=== PATIENT | male | born 1955 | race Native Hawaiian/Other Pacific Islander ===

== ENCOUNTER 2017-05-09 13:56 | Inpatient (IN) | payer OTHER ==
[2017-05-09 15:32] LABS: BASO # 0.1 K/uL (0.0-0.2); EOS # 0.1 K/uL (0.0-0.7); EOS % 1.9 % (0.0-4.0); HEMOGLOBIN 16.5 g/dL (12.0-18.0); LYMPH # 1.5 K/uL (1.0-4.3); LYMPH % 19.4 % (20.0-40.0); MEAN CELL VOLUME 85.7 fL (80.0-94.0); MEAN CORPUSCULAR HEMOGLOBIN 30.1 pg (27.0-31.0); MEAN CORPUSCULAR HGB CONC 35.1 g/dL (33.0-37.0); MEAN PLATELET VOLUME 7.8 fL (7.2-11.7); MONO # 0.7 K/uL (0.0-0.8); MONO % 9.4 % (0.0-10.0); NEUT # 5.3 K/uL (1.8-7.0); NEUT % 68.3 % (50.0-75.0); NRBC % 0.1 % (0.0-2.0); RBC 5.48 Mil/uL (4.40-5.90); RED CELL DISTRIBUTION WIDTH 14.9 % (11.5-14.5); WHITE BLOOD COUNT 7.7 K/uL (4.8-10.8)
[2017-05-09 15:41] LABS: URINE BILIRUBIN NEGATIVE (NEGATIVE); URINE BLOOD NEGATIVE (NEGATIVE); URINE CLARITY Clear (Clear); URINE COLOR Colorless (YELLOW); URINE GLUCOSE (UA) 3+ mg/dL (Normal); URINE LEUKOCYTE ESTERASE NEG Leu/uL (Negative); URINE PROTEIN NEGATIVE (NEGATIVE); URINE UROBILINOGEN NORMAL mg/dL (0.2-1.0)
[2017-05-09 15:42] LABS: INR 0.9; PROTHROMBIN TIME 10.5 SECONDS (9.7-12.2)
--- NOTE | 2017-05-09 16:23 | CT ---
PROCEDURE: CT Chest without contrast HISTORY: eval for TB- @ outside Radiology (no report avai COMPARISON: None. TECHNIQUE: Contiguous axial images were obtained through the chest without intravenous contrast enhancement. Sagittal and coronal reconstructions were performed. Radiation dose (DLP): 338.78 mGy-cm. This CT exam was performed using one or more of the following dose reduction techniques: Automated exposure control, adjustment of the mA and/or kV according to patient size, and/or use of iterative reconstruction technique. FINDINGS: LUNGS: Multifocal patchy consolidation in the apical posterior segment of the left upper lobe. Fibrosis with upward retraction of left hilum. Patchy consolidation also seen in superior segment left lower lobe, anterior segment right upper lobe. Multifocal small airways disease manifested as tree in bud appearance in the right lower lobe, most prominently in the superior segment as well as throughout the basilar segments of the left lower lobe, in the lingular segment of left upper lobe. No evidence of cavitation. 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 Antro basal left lower lobe nodule, 1.3 cm. Lingular nodule, 1.4 cm, abutting the major fissure. Nonspecific. Followup advised. MEDIASTINUM: Unremarkable thoracic aorta. No aneurysm. Normal sized heart. Main pulmonary artery unremarkable. No vascular congestion. No lymphadenopathy. PLEURA: No pleural fluid. No pneumothorax. BONES: No fracture. No destructive lesion. UPPER ABDOMEN: Grossly unremarkable. OTHER FINDINGS: None. IMPRESSION: Findings suspicious for reactivation tuberculosis with areas of yakelin consolidation as well as multifocal small airways disease as well as fibrotic change in the left apex with upward retraction of the left hilum. No evidence of cavitation. Several left basilar nodules are noted, both in the lower lobe and lingula. Followup advised.
--- NOTE | 2017-05-09 16:32 | C.PDOC ---
History Of Present Illness 61 year old male is sent to the ED by Dr. Kamari Moscoso for evaluation of cough , atypical CXR and CT scan done as an outpatient (not in our facilities) and suspicious reactivation of TB. Patient presents to the ED with no paperwork to the ED. Patient denies recent weight loss, hemoptysis, prior Hx of TB, recent travel, recent contact with TB. Time Seen by Provider: 05/09/17 14:27 Chief Complaint (Nursing): Medical Clearance History Per: Patient History/Exam Limitations: no limitations Onset/Duration Of Symptoms: Days Current Symptoms Are (Timing): Still Present Reports Recently: Treated By A Physician (Dr. Kamari Moscoso) Recent travel outside of the [place]: No Additional History Per: Patient Past Medical History Reviewed: Historical Data, Nursing Documentation, Vital Signs Vital Signs: Last Vital Signs Temp 98.1 F 05/09/17 23:33 Pulse 65 05/09/17 23:33 Resp 20 05/09/17 23:33 BP 129/79 05/09/17 23:33 Pulse Ox 98 05/09/17 23:33 - Medical History PMH: HTN Surgical History: No Surg Hx Family History: States: Unknown Family Hx - Social History Hx Alcohol Use: Yes Hx Substance Use: No - Immunization History Hx Tetanus Toxoid Vaccination: No Hx Influenza Vaccination: Yes Hx Pneumococcal Vaccination: No Review Of Systems Constitutional: Negative for: Fever, Chills Respiratory: Positive for: Cough. Negative for: Shortness of Breath, Hemoptysis Gastrointestinal: Negative for: Vomiting, Abdominal Pain Skin: Negative for: Rash Neurological: Negative for: Weakness Physical Exam - Physical Exam Appears: Non-toxic, No Acute Distress Skin: Normal Color, Warm, Dry Head: Atraumatic, Normacephalic Eye(s): bilateral: Normal Inspection Nose: No Discharge Oral Mucosa: Moist Neck: Normal ROM, Supple Chest: Symmetrical Cardiovascular: Rhythm Regular, No Murmur Respiratory: Normal Breath Sounds, No Rales, No Rhonchi, No Wheezing Gastrointestinal/Abdominal: Soft, No Tenderness, No Guarding, No Rebound Extremity: Normal ROM, No Tenderness, No Swelling Neurological/Psych: Oriented x3 Gait: Steady ED Course And Treatment - Laboratory Results Result Diagrams: 05/09/17 15:28 05/09/17 15:28 O2 Sat by Pulse Oximetry: 97 (On RA) Pulse Ox Interpretation: Normal - CT Scan/US CT chest Other Rad Studies (CT/US): Read By Radiologist, Radiology Report Reviewed CT/US Interpretation: IMPRESSION: Findings suspicious for reactivation tuberculosis with areas of yakelin consolidation as well as multifocal small airways disease as well as fibrotic change in the left apex with upward retraction of the left hilum. No evidence of cavitation. Several left basilar nodules are noted, both in the lower lobe and lingula. Followup advised. Medical Decision Making Medical Decision Making: Impression: TB rule out Plan: * EKG * CT chest * CXR * Labs * Quatiferon * Blood culture * Influenza A B * UA 14:30 - spoke with Dr. Moscoso who recommended Dr. Diaz 15:00 - Spoke with Dr. Diaz who will be on consult. Disposition Doctor Will See Patient In The: Hospital Counseled Patient/Family Regarding: Studies Performed, Diagnosis - Disposition Disposition: HOSPITALIZED Disposition Time: 16:30 Condition: GOOD - Clinical Impression Clinical Impression: Reactivation tuberculosis - Scribe Statement The provider has reviewed the documentation as recorded by the Danielibaudi Mckee All medical record entries made by the Danielibaudi were at my direction and personally dictated by me. I have reviewed the chart and agree that the record accurately reflects my personal performance of the history, physical exam, medical decision making, and the department course for this patient. I have also personally directed, reviewed, and agree with the discharge instructions and disposition.
[2017-05-09 16:50] LABS: ALB/GLOB RATIO 1.3 (1.0-2.1); ALBUMIN 4.6 g/dL (3.5-5.0); ALT/SGPT 62 U/L (21-72); AST/SGOT 48 U/L (17-59); BLOOD UREA NITROGEN 18 mg/dL (9-20); CALCIUM 9.6 mg/dl (8.6-10.4); GFR AFRICAN-AMERICAN > 60; GFR NON-AFRICAN AMERICAN > 60
--- NOTE | 2017-05-09 17:58 | RAD ---
PROCEDURE: CHEST RADIOGRAPH, 1 VIEW HISTORY: SOB COMPARISON: May 09, 2017. CT thorax FINDINGS: LUNGS: Patchy infiltrates left upper lobe, left lung predilection better visualized on recent CT scan. PLEURA: No pneumothorax or pleural fluid seen. CARDIOVASCULAR: No radiographic findings to suggest acute or significant cardiovascular disease. OSSEOUS STRUCTURES: No significant abnormalities. VISUALIZED UPPER ABDOMEN: Normal. OTHER FINDINGS: None. IMPRESSION: Multifocal infiltrates particularly affecting the left lung.
[2017-05-09] MEDS: (Novolog) Insulin Aspart, Recombinant 100 u/ml 10 ml vial SC SCH (21:16)
[2017-05-10] MEDS: (Novolog) Insulin Aspart, Recombinant 100 u/ml 10 ml vial SC SCH ×4 (08:37→21:33)
--- NOTE | 2017-05-10 09:35 | CP.PCM.HP ---
History of Present Illness - History of Present Illness History of Present Illness: CC: ? PTB 61 y/o male was seen for pre operative evaluation for neck surgery. Patient CXR was abnormal and had a (+) PPD - 14 mm. 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 Pt advise to go to ER Present on Admission - Present on Admission Any Indicators Present on Admission: Yes History of DVT/PE: No History of Uncontrolled Diabetes: No Urinary Catheter: No Decubitus Ulcer Present: No Review of Systems - Review of Systems Systems not reviewed;Unavailable: Acuity of Condition - Constitutional Constitutional: absent: Anorexia, Frequent Falls, Headache, Snoring - EENT Eyes: absent: Change in Vision, Floaters, Irritation, Itchy Eyes Nose/Mouth/Throat: Neck Pain. absent: Nasal Congestion, Bleeding Gums, Halitosis, Odynophagia - Cardiovascular Cardiovascular: absent: Chest Pain, Diaphoresis, Irregular Heart Rhythm, Lightheadedness, Orthopnea - Respiratory Respiratory: Cough. absent: Dyspnea, Hemoptysis, Dyspnea on Exertion, Chest Congestion, Excessive Mucous Production, Change in Mucous Color - Gastrointestinal Gastrointestinal: absent: Abdominal Pain, Change in Stool Character, Diarrhea, Fecal Incontinence, Heartburn, Nausea - Genitourinary Genitourinary: absent: Change in Urinary Stream, Hematuria, Nocturia, Urinary Incontinence - Musculoskeletal Musculoskeletal: absent: Abnormal Gait, Muscle Weakness, Myalgias - Integumentary Integumentary: absent: Bleeding Lesions, New Lesions, Rash, Skin Ulcer, Wounds - Neurological Neurological: absent: Disequilibrium, Dizziness, Numbness, Radicular Pain, Syncope, Tingling Past Patient History - Infectious Disease Hx of Infectious Diseases: None - Past Medical History & Family History Past Medical History?: Yes - Past Social History Smoking Status: Former Smoker - CARDIAC Hx Hypertension: Yes - PULMONARY Hx Respiratory Disorders: No - NEUROLOGICAL Hx Neurological Disorder: No - HEENT Hx HEENT Problems: No - RENAL Hx Chronic Kidney Disease: No - ENDOCRINE/METABOLIC Hx Endocrine Disorders: Yes Hx Diabetes Mellitus Type 2: Yes - HEMATOLOGICAL/ONCOLOGICAL Hx Blood Disorders: No - INTEGUMENTARY Hx Dermatological Problems: No - MUSCULOSKELETAL/RHEUMATOLOGICAL Hx Musculoskeletal Disorders: No Hx Falls: No - GASTROINTESTINAL Hx Gastrointestinal Disorders: No - GENITOURINARY/GYNECOLOGICAL Hx Genitourinary Disorders: No - PSYCHIATRIC Hx Substance Use: No - SURGICAL HISTORY Hx Surgeries: No - ANESTHESIA Hx Anesthesia: No Hx Anesthesia Reactions: No Hx Malignant Hyperthermia: No Has any member of the family had a problem w/ anesthesia?: No Meds Allergies/Adverse Reactions: Allergies Allergy/AdvReac Type Severity Reaction Status Date / Time No Known Allergies Allergy Verified 05/09/17 14:05 Physical Exam - Constitutional Appears: Well - Eye Exam Eye Exam: Normal appearance - ENT Exam ENT Exam: Mucous Membranes Moist - Neck Exam Neck exam: Positive for: Full Rom. Negative for: Lymphadenopathy, Normal Inspection, Thyromegaly - Respiratory Exam Respiratory Exam: Clear to Auscultation Bilateral. absent: Rales, Rhonchi, Wheezes - Cardiovascular Exam Cardiovascular Exam: +S1, +S2, Systolic Murmur. absent: Gallop, REGULAR RHYTHM , JVD - GI/Abdominal Exam GI & Abdominal Exam: Soft. absent: Mass, Tenderness - Extremities Exam Extremities exam: Positive for: full ROM. Negative for: calf tenderness, joint swelling, pedal edema Results - Vital Signs Recent Vital Signs: Last Vital Signs Temp 97.9 F 05/10/17 07:10 Pulse 64 05/10/17 07:10 Resp 20 05/10/17 07:10 BP 120/73 05/10/17 07:10 Pulse Ox 97 05/10/17 07:10 - Labs Result Diagrams: 05/09/17 15:28 05/09/17 15:28 Labs: Laboratory Results - last 24 hr 05/09/17 05/09/17 05/09/17 14:56 15:28 15:28 WBC 7.7 RBC 5.48 Hgb 16.5 Hct 47.0 MCV 85.7 MCH 30.1 MCHC 35.1 RDW 14.9 H Plt Count 277 MPV 7.8 Neut % (Auto) 68.3 Lymph % (Auto) 19.4 L [place] % (Auto) 9.4 Eos % (Auto) 1.9 Baso % (Auto) 1.0 Neut # (Auto) 5.3 Lymph # (Auto) 1.5 [place] # (Auto) 0.7 Eos # (Auto) 0.1 Baso # (Auto) 0.1 PT INR APTT Sodium 138 Potassium 4.0 Chloride 91 L Carbon Dioxide 24 Anion Gap 26 H BUN 18 Creatinine 1.0 Est GFR ( Amer) > 60 Est GFR (Non-Af Amer) > 60 POC Glucose (mg/dL) Random Glucose 327 H Calcium 9.6 Total Bilirubin 0.5 AST 48 ALT 62 Alkaline Phosphatase 76 Troponin I < 0.0120 Total Protein 8.0 Albumin 4.6 Globulin 3.4 Albumin/Globulin Ratio 1.3 Urine Color Urine Clarity Urine pH Ur Specific [place] Urine Protein Urine Glucose (UA) Urine Ketones Urine Blood Urine Nitrate Urine Bilirubin Urine Urobilinogen Ur Leukocyte Esterase Influenza Typ A,B (EIA) Negative for flu a/b 05/09/17 05/09/17 05/09/17 15:28 15:35 18:09 WBC RBC Hgb Hct MCV MCH MCHC RDW Plt Count MPV Neut % (Auto) Lymph % (Auto) [place] % (Auto) Eos % (Auto) Baso % (Auto) Neut # (Auto) Lymph # (Auto) [place] # (Auto) Eos # (Auto) Baso # (Auto) PT 10.5 INR 0.9 APTT 32 Sodium Potassium Chloride Carbon Dioxide Anion Gap BUN Creatinine Est GFR ( Amer) Est GFR (Non-Af Amer) POC Glucose (mg/dL) 273 H Random Glucose Calcium Total Bilirubin AST ALT Alkaline Phosphatase Troponin I Total Protein Albumin Globulin Albumin/Globulin Ratio Urine Color Colorless Urine Clarity Clear Urine pH 5.0 Ur Specific [place] 1.018 Urine Protein Negative Urine Glucose (UA) 3+ H Urine Ketones Negative Urine Blood Negative Urine Nitrate Negative Urine Bilirubin Negative Urine Urobilinogen Normal Ur Leukocyte Esterase Neg Influenza Typ A,B (EIA) 05/09/17 05/10/17 21:09 06:15 WBC RBC Hgb Hct MCV MCH MCHC RDW Plt Count MPV Neut % (Auto) Lymph % (Auto) [place] % (Auto) Eos % (Auto) Baso % (Auto) Neut # (Auto) Lymph # (Auto) [place] # (Auto) Eos # (Auto) Baso # (Auto) PT INR APTT Sodium Potassium Chloride Carbon Dioxide Anion Gap BUN Creatinine Est GFR ( Amer) Est GFR (Non-Af Amer) POC Glucose (mg/dL) 207 H 225 H Random Glucose Calcium Total Bilirubin AST ALT Alkaline Phosphatase Troponin I Total Protein Albumin Globulin Albumin/Globulin Ratio Urine Color Urine Clarity Urine pH Ur Specific [place] Urine Protein Urine Glucose (UA) Urine Ketones Urine Blood Urine Nitrate Urine Bilirubin Urine Urobilinogen Ur Leukocyte Esterase Influenza Typ A,B (EIA) - EKG Data EKG Interpreted by: Myself (isolated PAC) EKG shows normal: Sinus rhythm Rate: Normal - EKG Data When Compared to Previous EKG: No Significant Change Assessment & Plan - Assessment and Plan (Free Text) Assessment: Atyp chest pain; NIDDM, Hypothyroidism Cont meds at home For ID but will start RI for now
[2017-05-10] MEDS: Bisoprolol-HCTZ 5-6.25 mg Tab PO SCH (10:21)
[2017-05-10] MEDS: Dapagliflozin Propanediol [Farxiga] 5 MG PO SCH (10:21)
[2017-05-10] MEDS: (Lantus) Insulin Glargine, Recombinant SC SCH (10:57)
--- NOTE | 2017-05-10 11:11 | CP.PCM.CON ---
History of Present Illness - History of Present Illness History of Present Illness: 61 year old male is sent to the ED by Dr. Kamari Moscoso for evaluation of cough , atypical CXR and CT scan done as an outpatient (not in our facilities) and suspicious reactivation of TB. Patient presents to the ED with no paperwork to the ED. Patient denies recent weight loss, hemoptysis, prior Hx of TB, recent travel, recent contact with TB. 61 y/o male was seen for pre operative evaluation for neck surgery. Patient CXR was abnormal and had a (+) PPD - 14 mm. 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 Pt advise to go to ER Present on Admission - Present on Admission Any Indicators Present on Admission: Yes History of DVT/PE: No History of Uncontrolled Diabetes: No Urinary Catheter: No Decubitus Ulcer Present: No Review of Systems - Review of Systems Systems not reviewed;Unavailable: Acuity of Condition - Constitutional Constitutional: absent: Anorexia, Frequent Falls, Headache, Snoring - EENT Eyes: absent: Change in Vision, Floaters, Irritation, Itchy Eyes Nose/Mouth/Throat: Neck Pain. absent: Nasal Congestion, Bleeding Gums, Halitosis, Odynophagia - Cardiovascular Cardiovascular: absent: Chest Pain, Diaphoresis, Irregular Heart Rhythm, Lightheadedness, Orthopnea - Respiratory Respiratory: Cough. absent: Dyspnea, Hemoptysis, Dyspnea on Exertion, Chest Congestion, Excessive Mucous Production, Change in Mucous Color - Gastrointestinal Gastrointestinal: absent: Abdominal Pain, Change in Stool Character, Diarrhea, Fecal Incontinence, Heartburn, Nausea - Genitourinary Genitourinary: absent: Change in Urinary Stream, Hematuria, Nocturia, Urinary Incontinence - Musculoskeletal Musculoskeletal: absent: Abnormal Gait, Muscle Weakness, Myalgias - Integumentary Integumentary: absent: Bleeding Lesions, New Lesions, Rash, Skin Ulcer, Wounds - Neurological Neurological: absent: Disequilibrium, Dizziness, Numbness, Radicular Pain, Syncope, Tingling Past Patient History - Infectious Disease Hx of Infectious Diseases: None - Past Medical History & Family History Past Medical History?: Yes - Past Social History Smoking Status: Former Smoker - CARDIAC Hx Hypertension: Yes - PULMONARY Hx Respiratory Disorders: No - NEUROLOGICAL Hx Neurological Disorder: No - HEENT Hx HEENT Problems: No - RENAL Hx Chronic Kidney Disease: No - ENDOCRINE/METABOLIC Hx Endocrine Disorders: Yes Hx Diabetes Mellitus Type 2: Yes - HEMATOLOGICAL/ONCOLOGICAL Hx Blood Disorders: No - INTEGUMENTARY Hx Dermatological Problems: No - MUSCULOSKELETAL/RHEUMATOLOGICAL Hx Musculoskeletal Disorders: No Hx Falls: No - GASTROINTESTINAL Hx Gastrointestinal Disorders: No - GENITOURINARY/GYNECOLOGICAL Hx Genitourinary Disorders: No - PSYCHIATRIC Hx Substance Use: No - SURGICAL HISTORY Hx Surgeries: No - ANESTHESIA Hx Anesthesia: No Hx Anesthesia Reactions: No Hx Malignant Hyperthermia: No Has any member of the family had a problem w/ anesthesia?: No Meds Allergies/Adverse Reactions: Allergies Allergy/AdvReac Type Severity Reaction Status Date / Time No Known Allergies Allergy Verified 05/09/17 14:05 - Medications Medications: Current Medications Bisoprolol Fumarate/HCTZ (Ziac 5-6.25 Mg) 1 tab PO DAILY [facility] Last Admin: 05/10/17 10:21 Dose: 1 tab Heparin Sodium (Porcine) (Heparin) 5,000 units SC Q12 [facility] Home Med (Patient's Own Medication) 1 tab PO DAILY [facility] Last Admin: 05/10/17 10:21 Dose: 1 tab Insulin Aspart (Novolog) 0 unit SC ACHS [facility] PRN Reason: Protocol Last Admin: 05/10/17 08:37 Dose: 3 unit Insulin Glargine (Lantus) 12 unit SC DAILY [facility] Isoniazid (Niazid) 300 mg PO DAILY [facility] PRN Reason: Protocol Last Admin: 05/10/17 10:21 Dose: 300 mg Metformin HCl (Glucophage) 850 mg PO DAILY [facility] Last Admin: 05/10/17 10:22 Dose: 850 mg Rifampin (Rifampin) 450 mg PO DAILY [facility] PRN Reason: Protocol Stop: 05/23/17 23:59 Last Admin: 05/10/17 10:21 Dose: 450 mg Rosuvastatin Calcium (Crestor) 5 mg PO HS [facility] Last Admin: 05/09/17 21:06 Dose: 5 mg Physical Exam - Constitutional Appears: Chronically Ill - Head Exam Head Exam: ATRAUMATIC, NORMOCEPHALIC - Eye Exam Eye Exam: PERRL. absent: Scleral icterus - ENT Exam ENT Exam: Mucous Membranes Dry - Neck Exam Neck exam: Negative for: Lymphadenopathy - Respiratory Exam Respiratory Exam: Decreased Breath Sounds - Cardiovascular Exam Cardiovascular Exam: REGULAR RHYTHM - GI/Abdominal Exam GI & Abdominal Exam: Diminished Bowel Sounds, Soft. absent: Tenderness - Rectal Exam Rectal Exam: Deferred - Exam Exam: NORMAL INSPECTION - Extremities Exam Extremities exam: Negative for: pedal edema - Back Exam Back exam: absent: CVA tenderness (L), CVA tenderness (R) - Neurological Exam Neurological exam: Alert, CN II-XII Intact, Oriented x3, Reflexes Normal - Psychiatric Exam Psychiatric exam: Normal Mood - Skin Skin Exam: Dry Results - Vital Signs Recent Vital Signs: Last Vital Signs Temp 97.9 F 05/10/17 07:10 Pulse 64 05/10/17 07:10 Resp 20 05/10/17 07:10 BP 120/73 05/10/17 07:10 Pulse Ox 97 05/10/17 07:10 - Labs Result Diagrams: 05/09/17 15:28 05/09/17 15:28 Labs: Laboratory Results - last 24 hr 05/09/17 05/09/17 05/09/17 14:56 15:28 15:28 WBC 7.7 RBC 5.48 Hgb 16.5 Hct 47.0 MCV 85.7 MCH 30.1 MCHC 35.1 RDW 14.9 H Plt Count 277 MPV 7.8 Neut % (Auto) 68.3 Lymph % (Auto) 19.4 L [place] % (Auto) 9.4 Eos % (Auto) 1.9 Baso % (Auto) 1.0 Neut # (Auto) 5.3 Lymph # (Auto) 1.5 [place] # (Auto) 0.7 Eos # (Auto) 0.1 Baso # (Auto) 0.1 PT INR APTT Sodium 138 Potassium 4.0 Chloride 91 L Carbon Dioxide 24 Anion Gap 26 H BUN 18 Creatinine 1.0 Est GFR ( Amer) > 60 Est GFR (Non-Af Amer) > 60 POC Glucose (mg/dL) Random Glucose 327 H Calcium 9.6 Total Bilirubin 0.5 AST 48 ALT 62 Alkaline Phosphatase 76 Troponin I < 0.0120 Total Protein 8.0 Albumin 4.6 Globulin 3.4 Albumin/Globulin Ratio 1.3 Urine Color Urine Clarity Urine pH Ur Specific [place] Urine Protein Urine Glucose (UA) Urine Ketones Urine Blood Urine Nitrate Urine Bilirubin Urine Urobilinogen Ur Leukocyte Esterase Influenza Typ A,B (EIA) Negative for flu a/b 05/09/17 05/09/17 05/09/17 15:28 15:35 18:09 WBC RBC Hgb Hct MCV MCH MCHC RDW Plt Count MPV Neut % (Auto) Lymph % (Auto) [place] % (Auto) Eos % (Auto) Baso % (Auto) Neut # (Auto) Lymph # (Auto) [place] # (Auto) Eos # (Auto) Baso # (Auto) PT 10.5 INR 0.9 APTT 32 Sodium Potassium Chloride Carbon Dioxide Anion Gap BUN Creatinine Est GFR ( Amer) Est GFR (Non-Af Amer) POC Glucose (mg/dL) 273 H Random Glucose Calcium Total Bilirubin AST ALT Alkaline Phosphatase Troponin I Total Protein Albumin Globulin Albumin/Globulin Ratio Urine Color Colorless Urine Clarity Clear Urine pH 5.0 Ur Specific [place] 1.018 Urine Protein Negative Urine Glucose (UA) 3+ H Urine Ketones Negative Urine Blood Negative Urine Nitrate Negative Urine Bilirubin Negative Urine Urobilinogen Normal Ur Leukocyte Esterase Neg Influenza Typ A,B (EIA) 05/09/17 05/10/17 21:09 06:15 WBC RBC Hgb Hct MCV MCH MCHC RDW Plt Count MPV Neut % (Auto) Lymph % (Auto) [place] % (Auto) Eos % (Auto) Baso % (Auto) Neut # (Auto) Lymph # (Auto) [place] # (Auto) Eos # (Auto) Baso # (Auto) PT INR APTT Sodium Potassium Chloride Carbon Dioxide Anion Gap BUN Creatinine Est GFR ( Amer) Est GFR (Non-Af Amer) POC Glucose (mg/dL) 207 H 225 H Random Glucose Calcium Total Bilirubin AST ALT Alkaline Phosphatase Troponin I Total Protein Albumin Globulin Albumin/Globulin Ratio Urine Color Urine Clarity Urine pH Ur Specific [place] Urine Protein Urine Glucose (UA) Urine Ketones Urine Blood Urine Nitrate Urine Bilirubin Urine Urobilinogen Ur Leukocyte Esterase Influenza Typ A,B (EIA) Assessment & Plan (1) Reactivation tuberculosis Status: Acute - Assessment and Plan (Free Text) Assessment: await smears
--- NOTE | 2017-05-10 11:13 | CARD ---
APPROVED REPORT EKG Measurement Heart [id number] <Conclusion> Sinus rhythm with premature atrial complexes Otherwise normal ECG
--- NOTE | 2017-05-11 08:16 | CP.PCM.PN ---
Subjective - Date & Time of Evaluation Date of Evaluation: 05/11/17 Time of Evaluation: 08:15 - Subjective Subjective: Patient no comp;heidy; no CP, no SOB, (+) mostly dry cough, no diarrhea request to go home Objective - Vital Signs/Intake and Output Vital Signs (last 24 hours): Temp Pulse Resp BP Pulse Ox 97.7 F 64 20 111/75 95 05/11/17 07:42 05/11/17 07:42 05/11/17 07:42 05/11/17 07:42 05/11/17 07:42 - Medications Medications: Current Medications Bisoprolol Fumarate/HCTZ (Ziac 5-6.25 Mg) 1 tab PO DAILY [facility] Last Admin: 05/10/17 10:21 Dose: 1 tab Ethambutol HCl (Myambutol) 400 mg PO TID [facility] PRN Reason: Protocol Last Admin: 05/10/17 17:36 Dose: 400 mg Heparin Sodium (Porcine) (Heparin) 5,000 units SC Q12 [facility] Last Admin: 05/10/17 21:29 Dose: 5,000 units Home Med (Patient's Own Medication) 1 tab PO DAILY [facility] Last Admin: 05/10/17 10:21 Dose: 1 tab Insulin Aspart (Novolog) 0 unit SC ACHS [facility] PRN Reason: Protocol Last Admin: 05/10/17 21:33 Dose: Not Given Insulin Glargine (Lantus) 12 unit SC DAILY [facility] Last Admin: 05/10/17 10:57 Dose: 12 unit Isoniazid (Niazid) 300 mg PO DAILY [facility] PRN Reason: Protocol Last Admin: 05/10/17 10:21 Dose: 300 mg Metformin HCl (Glucophage) 850 mg PO DAILY [facility] Last Admin: 05/10/17 10:22 Dose: 850 mg Rifampin (Rifampin) 450 mg PO DAILY [facility] PRN Reason: Protocol Stop: 05/23/17 23:59 Last Admin: 05/10/17 10:21 Dose: 450 mg Rosuvastatin Calcium (Crestor) 5 mg PO HS [facility] Last Admin: 05/10/17 21:29 Dose: 5 mg - Labs Labs: 05/09/17 15:28 05/09/17 15:28 PT 10.5 SECONDS (9.7-12.2) 05/09/17 15:28 INR 0.9 05/09/17 15:28 APTT 32 SECONDS (21-34) 05/09/17 15:28 - Constitutional Appears: No Acute Distress - Eye Exam Eye Exam: Normal appearance - ENT Exam ENT Exam: Mucous Membranes Moist - Neck Exam Neck Exam: Full ROM. absent: Lymphadenopathy, Thyromegaly - Respiratory Exam Respiratory Exam: Clear to Ausculation Bilateral. absent: Rales, Rhonchi, Wheezes - Cardiovascular Exam Cardiovascular Exam: +S1, +S2. absent: Gallop, REGULAR RHYTHM, JVD, Murmur - GI/Abdominal Exam GI & Abdominal Exam: Soft. absent: Tenderness, Mass - Extremities Exam Extremities Exam: Full ROM, Normal Capillary Refill. absent: Joint Swelling, Pedal Edema Assessment and Plan - Assessment and Plan (Free Text) Assessment: prob PTB NIDDM, HTN, Hyperlipidemia cont meds/ Await [employer]
[2017-05-11] MEDS: (Novolog) Insulin Aspart, Recombinant 100 u/ml 10 ml vial SC SCH ×4 (08:28→21:41)
[2017-05-11] MEDS: Bisoprolol-HCTZ 5-6.25 mg Tab PO SCH (09:33)
[2017-05-11] MEDS: (Lantus) Insulin Glargine, Recombinant SC SCH (09:33)
[2017-05-11] MEDS: Dapagliflozin Propanediol [Farxiga] 5 MG PO SCH (09:33)
[2017-05-11] MEDS: Pyridoxine 100 mg Tab PO SCH (14:19)
--- NOTE | 2017-05-11 18:03 | CP.PCM.PN ---
Subjective - Date & Time of Evaluation Date of Evaluation: 05/11/17 Time of Evaluation: 10:00 - Subjective Subjective: smears neg thus far if 3 smears neg can d/c on PO rx to follow in office pending cultures will send for TB quantiferon Objective - Vital Signs/Intake and Output Vital Signs (last 24 hours): Temp Pulse Resp BP Pulse Ox 98.1 F 65 20 116/77 96 05/11/17 15:00 05/11/17 15:00 05/11/17 15:00 05/11/17 15:00 05/11/17 15:00 - Medications Medications: Current Medications Bisoprolol Fumarate/HCTZ (Ziac 5-6.25 Mg) 1 tab PO DAILY COUNT INCLUDES [facility] Last Admin: 05/11/17 09:33 Dose: 1 tab Ethambutol HCl (Myambutol) 400 mg PO TID COUNT INCLUDES [facility] PRN Reason: Protocol Last Admin: 05/11/17 17:41 Dose: 400 mg Heparin Sodium (Porcine) (Heparin) 5,000 units SC Q12 COUNT INCLUDES [facility] Last Admin: 05/11/17 09:32 Dose: 5,000 units Home Med (Patient's Own Medication) 1 tab PO DAILY COUNT INCLUDES [facility] Last Admin: 05/11/17 09:33 Dose: 1 tab Insulin Aspart (Novolog) 0 unit SC ACHS [facility] PRN Reason: Protocol Last Admin: 05/11/17 17:15 Dose: Not Given Insulin Glargine (Lantus) 12 unit SC DAILY COUNT [facility]CLUDES [facility] Last Admin: 05/11/17 09:33 Dose: 12 unit Isoniazid (Niazid) 300 mg PO DAILY [facility] PRN Reason: Protocol Last Admin: 05/11/17 09:33 Dose: 300 mg Metformin HCl (Glucophage) 850 mg PO DAILY COUNT [facility]CLUDES [facility] Last Admin: 05/11/17 09:33 Dose: 850 mg Pyrazinamide (Pyrazinamide) 1,000 mg PO DAILY [facility] PRN Reason: Protocol Last Admin: 05/11/17 09:33 Dose: 1,000 mg Pyridoxine HCl (Vitamin B6) 100 mg PO DAILY COUNT [facility]CLUD[facility] Last Admin: 05/11/17 14:19 Dose: 100 mg Rifampin (Rifampin) 450 mg PO DAILY [facility] PRN Reason: Protocol Stop: 05/23/17 23:59 Last Admin: 05/11/17 09:32 Dose: 450 mg Rosuvastatin Calcium (Crestor) 5 mg PO HS COUNT INCLUDES [facility] Last Admin: 05/10/17 21:29 Dose: 5 mg - Labs Labs: 05/09/17 15:28 05/09/17 15:28 PT 10.5 SECONDS (9.7-12.2) 05/09/17 15:28 INR 0.9 05/09/17 15:28 APTT 32 SECONDS (21-34) 05/09/17 15:28 - Constitutional Appears: Non-toxic, Chronically Ill - Head Exam Head Exam: NORMOCEPHALIC - Eye Exam Eye Exam: PERRL - ENT Exam ENT Exam: Mucous Membranes Dry - Neck Exam Neck Exam: absent: Lymphadenopathy - Respiratory Exam Respiratory Exam: Decreased Breath Sounds - Cardiovascular Exam Cardiovascular Exam: REGULAR RHYTHM - GI/Abdominal Exam GI & Abdominal Exam: Distended, Soft. absent: Tenderness - Rectal Exam Rectal Exam: Deferred - Exam Exam: NORMAL INSPECTION - Extremities Exam Extremities Exam: absent: Pedal Edema - Back Exam Back Exam: absent: CVA tenderness (L), CVA tenderness (R) Assessment and Plan (1) Reactivation tuberculosis Status: Acute
[2017-05-12] MEDS: (Novolog) Insulin Aspart, Recombinant 100 u/ml 10 ml vial SC SCH ×4 (08:35→21:44)
[2017-05-12] MEDS: Pyridoxine 100 mg Tab PO SCH (10:24)
[2017-05-12] MEDS: Dapagliflozin Propanediol [Farxiga] 5 MG PO SCH (10:24)
[2017-05-12] MEDS: Bisoprolol-HCTZ 5-6.25 mg Tab PO SCH (10:25)
[2017-05-12] MEDS: (Lantus) Insulin Glargine, Recombinant SC SCH (10:27)
--- NOTE | 2017-05-12 15:12 | CP.PCM.PN ---
Subjective - Date & Time of Evaluation Date of Evaluation: 05/12/17 Time of Evaluation: 15:09 - Subjective Subjective: S: Feels levy. No fever. Objective - Vital Signs/Intake and Output Vital Signs (last 24 hours): Temp Pulse Resp BP Pulse Ox 97.8 F 63 20 118/77 98 05/12/17 07:39 05/12/17 07:39 05/12/17 07:39 05/12/17 07:39 05/12/17 07:39 - Medications Medications: Current Medications Bisoprolol Fumarate/HCTZ (Ziac 5-6.25 Mg) 1 tab PO DAILY [facility] Last Admin: 05/12/17 10:25 Dose: 1 tab Ethambutol HCl (Myambutol) 400 mg PO TID [facility] PRN Reason: Protocol Last Admin: 05/12/17 13:54 Dose: 400 mg Heparin Sodium (Porcine) (Heparin) 5,000 units SC Q12 [facility] Last Admin: 05/12/17 10:24 Dose: 5,000 units Home Med (Patient's Own Medication) 1 tab PO DAILY [facility] Last Admin: 05/12/17 10:24 Dose: 1 tab Insulin Aspart (Novolog) 0 unit SC ACHS [facility] PRN Reason: Protocol Last Admin: 05/12/17 12:34 Dose: 2 unit Insulin Glargine (Lantus) 12 unit SC DAILY [facility] Last Admin: 05/12/17 10:27 Dose: 12 unit Isoniazid (Niazid) 300 mg PO DAILY [facility] PRN Reason: Protocol Last Admin: 05/12/17 10:25 Dose: 300 mg Metformin HCl (Glucophage) 850 mg PO DAILY [facility] Last Admin: 05/12/17 10:25 Dose: 850 mg Pyrazinamide (Pyrazinamide) 1,000 mg PO DAILY [facility] PRN Reason: Protocol Last Admin: 05/12/17 10:25 Dose: 1,000 mg Pyridoxine HCl (Vitamin B6) 100 mg PO DAILY [facility] Last Admin: 05/12/17 10:24 Dose: 100 mg Rifampin (Rifampin) 450 mg PO DAILY [facility] PRN Reason: Protocol Stop: 05/23/17 23:59 Last Admin: 05/12/17 10:25 Dose: 450 mg Rosuvastatin Calcium (Crestor) 5 mg PO HS [facility] Last Admin: 05/11/17 22:13 Dose: 5 mg - Labs Labs: 05/09/17 15:28 05/09/17 15:28 PT 10.5 SECONDS (9.7-12.2) 05/09/17 15:28 INR 0.9 05/09/17 15:28 APTT 32 SECONDS (21-34) 05/09/17 15:28 - Head Exam Head Exam: NORMAL INSPECTION - Eye Exam Eye Exam: Normal appearance - ENT Exam ENT Exam: Normal Exam - Neck Exam Neck Exam: Normal Inspection - Respiratory Exam Respiratory Exam: NORMAL BREATHING PATTERN - Cardiovascular Exam Cardiovascular Exam: REGULAR RHYTHM - GI/Abdominal Exam GI & Abdominal Exam: Soft - Rectal Exam Rectal Exam: Deferred - Extremities Exam Extremities Exam: Normal Inspection - Neurological Exam Neurological Exam: Alert Assessment and Plan (1) Reactivation tuberculosis Status: Acute (2) HTN (hypertension) Status: Chronic (3) Diabetes Status: Chronic - Assessment and Plan (Free Text) Assessment: A/P: Continue medications. Sputum AF[employer] pending
[2017-05-13 07:50] VITALS: BP 123/81; PULSE 66; RESP 20; TEMP 97.7; O2SAT 97
--- NOTE | 2017-05-13 08:09 | CP.PCM.PN ---
Subjective - Date & Time of Evaluation Date of Evaluation: 05/13/17 Time of Evaluation: 07:35 - Subjective Subjective: Pt no complain; no cough,no CP, no SOB, no edema Objective - Vital Signs/Intake and Output Vital Signs (last 24 hours): Temp Pulse Resp BP Pulse Ox 97.7 F 66 20 123/81 97 05/13/17 07:49 05/13/17 07:49 05/13/17 07:49 05/13/17 07:49 05/13/17 07:49 Intake and Output: 05/13/17 05/13/17 06:59 18:59 Intake Total 200 Balance 200 - Medications Medications: Current Medications Bisoprolol Fumarate/HCTZ (Ziac 5-6.25 Mg) 1 tab PO DAILY [facility] Last Admin: 05/12/17 10:25 Dose: 1 tab Ethambutol HCl (Myambutol) 400 mg PO TID [facility] PRN Reason: Protocol Last Admin: 05/12/17 17:38 Dose: 400 mg Heparin Sodium (Porcine) (Heparin) 5,000 units SC Q12 [facility] Last Admin: 05/12/17 21:45 Dose: 5,000 units Home Med (Patient's Own Medication) 1 tab PO DAILY [facility] Last Admin: 05/12/17 10:24 Dose: 1 tab Insulin Aspart (Novolog) 0 unit SC ACHS [facility] PRN Reason: Protocol Last Admin: 05/12/17 21:44 Dose: Not Given Insulin Glargine (Lantus) 12 unit SC DAILY [facility] Last Admin: 05/12/17 10:27 Dose: 12 unit Isoniazid (Niazid) 300 mg PO DAILY [facility] PRN Reason: Protocol Last Admin: 05/12/17 10:25 Dose: 300 mg Metformin HCl (Glucophage) 850 mg PO DAILY [facility] Last Admin: 05/12/17 10:25 Dose: 850 mg Pyrazinamide (Pyrazinamide) 1,000 mg PO DAILY [facility] PRN Reason: Protocol Last Admin: 05/12/17 10:25 Dose: 1,000 mg Pyridoxine HCl (Vitamin B6) 100 mg PO DAILY [facility] Last Admin: 05/12/17 10:24 Dose: 100 mg Rifampin (Rifampin) 450 mg PO DAILY [facility] PRN Reason: Protocol Stop: 05/23/17 23:59 Last Admin: 05/12/17 10:25 Dose: 450 mg Rosuvastatin Calcium (Crestor) 5 mg PO HS [facility] Last Admin: 05/12/17 21:41 Dose: 5 mg - Labs Labs: 05/09/17 15:28 05/09/17 15:28 PT 10.5 SECONDS (9.7-12.2) 05/09/17 15:28 INR 0.9 05/09/17 15:28 APTT 32 SECONDS (21-34) 05/09/17 15:28 - Constitutional Appears: No Acute Distress - Eye Exam Eye Exam: Normal appearance - ENT Exam ENT Exam: Mucous Membranes Moist - Neck Exam Neck Exam: Full ROM. absent: Lymphadenopathy, Meningismus - Respiratory Exam Respiratory Exam: Clear to Ausculation Bilateral. absent: Rhonchi, Wheezes - GI/Abdominal Exam GI & Abdominal Exam: Soft. absent: Tenderness, Mass - Extremities Exam Extremities Exam: Full ROM. absent: Joint Swelling, Normal Capillary Refill, Pedal Edema Assessment and Plan - Assessment and Plan (Free Text) Assessment: HTN, NIDDM, PTB Events noted; dischage on antiTB until Culture Refuse Insulin use/ injectable conr OPD meds
== END 2017-05-13 08:55 | disposition home or self-care (01) | DRG 179 ==
LOC: C.ER 13:56 → C.9E 16:28 → C.5S 16:55
PROVIDERS: ADMIT Internal Medicine; ATTEND Internal Medicine
DX: A15.9 Respiratory tuberculosis unspecified (principal); E03.9 Hypothyroidism, unspecified; E78.5 Hyperlipidemia, unspecified; I10 Essential (primary) hypertension; E11.9 Type 2 diabetes mellitus without complications; Z87.891 Personal history of nicotine dependence; R07.9 Chest pain, unspecified